=== PATIENT | female | born 1970 | race American Indian/Alaskan Native ===

== ENCOUNTER 2017-01-15 14:48 | Outpatient (CLI) | payer BC ==
--- NOTE | 2017-01-16 07:41 | XRay Report ---
LUMBOSACRAL SPINE, 3 VIEWS: History: Acute lower back pain, right sciatica Findings: Normal bone mineralization. Normal height and alignment of the lumbar vertebra. The disc spaces are normal height. Mild facet arthropathy is noted throughout the lumbar region. No evidence for compression deformity, subluxation or bone lesion. The visualized sacrum and SI joints are within normal limits. Impression: Mild multilevel facet arthropathy. No acute process. If radicular symptoms are present, MRI lumbar spine without contrast could be obtained for further evaluation.
== END 2017-01-15 14:49 | disposition home or self-care (01) ==
LOC: SPVIMAG 14:48
PROVIDERS: ATTEND Internal Medicine
DX: M12.88 Other specific arthropathies, not elsewhere classified, other specified site (principal); Z68.23 Body mass index [BMI] 23.0-23.9, adult
CPT/HCPCS: 72100